=== PATIENT | female | born 1990 | race American Indian/Alaskan Native ===

== ENCOUNTER 2024-01-16 12:59 | Emergency (ER) | payer OTHER, SELFPAY ==
--- NOTE | ~2024-01-16 | CT_ITS ---
EXAMINATION: CT ABDOMEN AND PELVIS WITH CONTRAST CLINICAL INFORMATION: Umbilical drainage. COMPARISON: None. TECHNIQUE: Multidetector volumetric images were obtained from the superior aspect of the liver through the pubic symphysis following administration 85 mL of Omnipaque 350 intravenous contrast. Sagittal and coronal reformatted images were obtained on the technologist's workstation. Oral contrast: No This CT examination was performed using dose optimization techniques as appropriate, variously including the following: *Automated exposure control *Adjustment of mA and/or kV according to patient size (this includes techniques or standardized protocols for targeted exams where dose is matched to indication/reason for exam; i.e. extremities or head) *Use of iterative reconstruction technique DLP: 1094 mGy-cm FINDINGS: LUNG BASES: The visualized lung bases are unremarkable. LIVER, GALLBLADDER, AND BILIARY TREE: The liver is normal in size, shape and generally diminished in attenuation. No focal hepatic lesion or biliary ductal dilatation is present. The gallbladder is unremarkable with no evidence of radiopaque gallstones, gallbladder wall thickening, or obvious pericholecystic inflammatory changes. PANCREAS: Unremarkable. SPLEEN: Unremarkable. ADRENAL GLANDS: Unremarkable. KIDNEYS AND URETERS: The kidneys are normal in size, shape, and attenuation. No hydronephrosis, hydroureter, or calculi seen. No perinephric stranding. BLADDER: Unremarkable. GASTROINTESTINAL TRACT: The small and large bowel are unremarkable. The appendix is unremarkable. ABDOMINAL WALL: No significant hernia is appreciated. There is periumbilical fat stranding (7:58), without fluid collection or gas noted. LYMPH NODES: Normal. VASCULAR: Unremarkable. PELVIC VISCERA: No abdominal pelvic lymphadenopathy is seen. There are borderline enlarged bilateral inguinal lymph nodes, the largest on the right showing a short axis diameter of 9 mm, and on the left 1.0 cm (3:90, 96 and 93). OSSEOUS STRUCTURES: L5-S1, there is degenerative disc disease, with vacuum disc phenomena and a 4 mm retrolisthesis. No acute or aggressive osseous finding is noted. CT/CT abdomen pelvis w IV con IMPRESSION: 1. There is no significant hernia noted. There is periumbilical fat stranding, likely infectious or inflammatory in etiology. No fluid collection or gas is noted. 2. There is hepatic steatosis. 3. There are nonspecific borderline enlarged bilateral inguinal lymph nodes, likely reactive. Recommend management on a clinical basis. 4. There is moderately severe degenerative disc disease at L5-S1. Fleischner guidelines were followed. Electronically signed by: Damien Davis MD 01/16/2024 10:25 PM EDT RP
--- NOTE | 2024-01-16 13:56 | ED.ABDPAIN ---
HPI - Abdominal Pain General Chief Complaint: General Medical Stated Complaint: belly button bleeding Time Seen by Provider: 01/16/24 20:44 Source: patient Mode of arrival: ambulatory Limitations: no limitations History of Present Illness ED Provider: Alyssa Trinh PA-C HPI narrative: Patient is a 33 year old assigned female at with a history of Hidradenitis Suppurativa presenting to the emergency department today with bleeding from her umbilicus. Patient states that over the last month she has had intermittent bleeding from her belly button as well as other discharge. Patient states there is no possibility she accidentally scratched the inside of her belly button. Patient denies any dizziness, lightheadedness, nausea, vomiting, fever, chills, blurry vision, double vision, loss of vision, chest pain, difficulty breathing, shortness of breath, back pain, night sweats, pain with urination, increased urinary frequency, increased urinary urgency, blood in her urine or stool, syncope or a near syncopal episode, recent trauma or falls, bowel incontinence, bladder incontinence, or any other complaints at this time. MD elicited complaint: abdominal pain Exacerbating factors: nothing Relieving factors: nothing Associated symptoms: denies other symptoms Related Data Previous Rx's ?Medication ?Instructions ?Recorded cephalexin 500 mg capsule 500 mg PO Q6H 7 days #28 caps 01/16/24 doxycycline hyclate 100 mg tablet 100 mg PO BID 7 days #14 tabs 01/16/24 fluconazole 150 mg tablet 150 mg PO Q3D 2 doses #1 tab 01/16/24 Allergies Allergy/AdvReac Type Severity Reaction Status Date / Time amoxicillin Allergy Hives Verified 01/16/24 14:00 Review of Systems Constitutional: Reports no additional constitutional complaints, Denies chills, Denies fever(s) and Denies night sweats Eyes: Reports no additional eye complaints, Denies blurry vision, Denies change in vision, Denies diplopia, Denies eye discharge, Denies loss of vision and Denies eye pain Denies dizziness Cardiovascular: Reports no additional cardiovascular complaints, Denies chest pain, Denies lightheadedness, Denies Loss of Consciousness and Denies dyspnea Respiratory: Reports no additional respiratory complaints and Denies dyspnea Gastrointestinal: Reports no additional gastrointestinal complaints, Reports abdominal pain (around the umbilicus), Denies melena, Denies hematochezia, Denies change in bowel habits and Denies change in stool character Comments: umbilicus bleeding Genitourinary: Denies hematuria, Denies urinary frequency, Denies dysuria, Denies urinary incontinence, Denies urinary hesitancy and Denies urinary urgency Musculoskeletal: Reports no additional musculoskeletal complaints, Denies numbness and Denies tingling Denies dizziness, Denies loss of vision, Denies numbness and Denies tingling Psychiatric: Reports no additional psychiatric complaints Endocrine: Reports no additional endocrine complaints Hematologic/Lymphatic: Reports no additional hematologic/lymphatic complaints Allergic/Immunologic: Reports no additional allergic/immunologic complaints [facility] Past Medical History Attestation statement: The following information was validated with the patient. Source: old records reviewed and nursing notes reviewed Social History Social History Advance Directives: No Advance Directives Information Provided: No Physical Exam ED Vital Signs: Vital Signs - 24 hr 01/16/24 21:59 01/16/24 22:53 Temperature 98.5 F 98.5 F Pulse Rate 93 93 Respiratory Rate 20 20 Blood Pressure 109/63 109/63 Pulse Oximetry 98 98 Oxygen Delivery Method Room Air Room Air BMI result Body Mass Index 47.5 Const General: cooperative, no acute distress, alert and awake Nutritional Appearance: well nourished Orientation/consciousness: patient oriented x3 Limitations: no limitations HENMT Head: Yes normal to inspection and Yes atraumatic Ears: hearing grossly normal bilaterally and external ears normal General nose exam: Normal external nose present, no nasal discharge noted and no epistaxis Face and sinus: Yes normal facial exam, No abrasion and No laceration Mouth: Normal oral and palatal mucosa present, no drooling and no muffled voice Eyes General: appearance normal, both eyes and all related structures Periorbital: periorbital findings normal Eyelids: Yes eyelids normal Conjunctivae: conjunctivae normal Pupils: Equal, round and reactive pupils present EOM: EOMs intact bilaterally Neck Neck: Yes normal visual inspection, Yes full ROM and Yes no lymphadenopathy Chest Chest palpation & inspection: normal inspection of the chest Resp Effort & Inspection: normal respiratory effort and able to speak in complete sentences GI Inspection: Yes normal to inspection Palpation (GI): Soft to palpation, not firm, nontender, no guarding and not rigid Neuro General: patient oriented x3 and moves all extremities Cranial nerves: Yes Equal, round and reactive pupils present Cognition (Neuro): normal cognition Extrem General: Yes normal to inspection, Yes full ROM and Yes capillary refill normal Psych Appearance: grossly normal Mental Status: mental status grossly normal Affect: normal affect Attitude: cooperative Thought process: Normal thought process present Thought content: Normal thought content present Insight: Good insight present (Psych) Course Course Course Narrative: This is a Rapid Medical Exam performed in triage by Adelaida Llamas PA-C. Full HPI, ROS and PE to be performed by primary ED provider. 33yo F w/ pmhx pseudo-tumor cerebri, hidradenitis, fibroid removal laparoscopically, presenting to the ED c/o umbilical drainage/bleeding x 1 mos w/discomfort PE: + serosanguineous drainage noted from umbilicus. No surrounding erythema Plan: Labs, UA, CT AP Medical Decision Making Medical Decision Making [facility] Narrative: Patient is a 33 year old assigned female at with a history of Hidradentitis suppurativa presenting to the emergency department today with umbilical bleeding. Patient's physical exam was unremarkable. Patient's blood work showed a slight WBC count elevation of 12.5 but were otherwise unremarkable. Patient's urine showed a possible UTI. Patient's abdomen/pelvis CT showed periumbilical fat stranding - likely infectious or inflammatory in nature. I explained my physical exam findings as well as all test results to the patient. I answered all questions asked by the patient. I stressed the importance of the patient taking her medication as directed (either prescribed or as the over the counter packaging recommends). I stressed the importance of the patient following up with her primary care provider. I stressed the importance of the patient returning to the emergency department immediately if her symptoms were to worsen or if she were to develop any dizziness, shortness of breath, difficulty breathing, chest pain, blurry vision, loss of vision, nausea, vomiting, abdominal pain, fever, chills, back pain, or any other complaints. Patient verbalized agreement and understanding with this treatment plan and discharge. Differential Diagnosis Differential Diagnoses: The differential diagnosis associated with the presentation includes Umbilicus infection UTI Admission/Observation Consideration of admission/observation: Escalation of care including admission/observation considered Patient would have been admitted to the hospital had her work up had any findings where hospital admission was appropriate and her clinical presentation warranted hospital admission. Lab Data [facility] Lab Attestation statement: I reviewed the patient's lab results. My interpretation of these results are in the MDM Rationale portion of this note. 01/16/24 14:19 01/16/24 14:19 Labs: Lab Results 01/16/24 01/16/24 Range/Units 14:19 21:08 WBC 12.5 H (4.8-10.8) X10*3/uL RBC 5.34 (4.20-5.50) X10*6/uL Hgb 11.7 L (12.0-16.0) g/dl Hct 39.9 (37.0-47.0) % MCV 74.7 L (80.0-98.0) fL MCH 21.9 L (27.0-33.0) pg MCHC 29.3 L (31.0-35.0) g/dl RDW 17.4 H (11.0-16.0) % Plt Count 369 (160-400) X10*3/uL MPV 9.2 L (9.4-12.3) fL Immature Gran % (Auto) 0.5 H (0.0-0.4) % Neut % (Auto) 65.6 (45-73) % Lymph % (Auto) 24.0 (20-40) % Dane % (Auto) 5.2 (2-11) % Eos % (Auto) 3.7 (0-4) % Baso % (Auto) 1.0 (0-2) % Lymph # (Auto) 3.0 (1.2-4.9) X10*3/uL Dane # (Auto) 0.7 (0.1-1.2) X10*3/uL Eos # (Auto) 0.5 H (0.0-0.4) X10*3/uL Baso # (Auto) 0.1 (0.0-0.2) X10*3/uL Abs Immat Gran (auto) 0.06 H (0.00-0.03) X10*3/uL Absolute Neuts (auto) 8.2 (2.0-8.3) x10*3/uL Absolute Nucleated RBC 0.000 (0.0-0.012) X10*3/uL Nucleated RBC % (auto) 0.0 (0.0-0.2) /100WBC Smear Tech's Comments VERIFIED PT 12.9 (11.1-13.3) SEC INR 1.1 (0.9-1.1) Sodium 137 (135-145) mmol/L Potassium 3.9 (3.3-5.1) mmol/L Chloride 107 (96-108) mmol/L Carbon Dioxide 20 L (22-29) mmol/L Anion Gap 14 (12-20) BUN 7 L (9-16) mg/dL Creatinine 0.75 (0.5-1.4) mg/dL Estim Creat Clear Calc 144.8 Estimated GFR > 60 Random Glucose 203 H (60-115) mg/dL Calcium 9.4 (8.4-10.2) mg/dL Magnesium 1.9 (1.6-2.6) mg/dL Total Bilirubin 0.2 (0.0-1.0) mg/dL Direct Bilirubin < 0.2 (0.0-0.5) mg/dL AST 20 (5-31) U/L ALT 21 (0-31) U/L Alkaline Phosphatase 91 (39-117) U/L Total Protein 8.4 H (6.5-8.0) g/dL Albumin 3.6 (3.5-5.0) g/dL Lipase 24 (8-78) U/L Beta HCG, Quant < 2 mIU/mL Urine Color Yellow Urine Appearance Clear Urine pH 5.5 (5.0-9.0) Ur Specific Fleming >= 1.030 H (1.005-1.025) Urine Protein Trace (Neg-Trace) mg/dL Urine Glucose (UA) Negative (Negative) mg/dL Urine Ketones Negative (Negative) mg/dL Urine Blood Large (3+) H (Negative) Urine Nitrite Negative (Negative) Ur Leukocyte Esterase Trace H (Negative) Urine RBC 3-5 H (0-2) /HPF Urine WBC 0-5 (0-5) /HPF Ur Squamous Epith Cells 11-20 (0-2) /HPF Urine Bacteria 2+ (None Seen) Hyaline Casts 0-2 (0-2) /LPF Independent Interpretation I performed an independent interpretation of an: CT Scan Interpretation: My interpretation is in agreement with the radiologist's impression of this imaging study. EXAMINATION: CT ABDOMEN AND PELVIS WITH CONTRAST CLINICAL INFORMATION: Umbilical drainage. COMPARISON: None. TECHNIQUE: Multidetector volumetric images were obtained from the superior aspect of the liver through the pubic symphysis following administration 85 mL of Omnipaque 350 intravenous contrast. Sagittal and coronal reformatted images were obtained on the technologist's workstation. Oral contrast: No This CT examination was performed using dose optimization techniques as appropriate, variously including the following: *Automated exposure control *Adjustment of mA and/or kV according to patient size (this includes techniques or standardized protocols for targeted exams where dose is matched to indication/reason for exam; i.e. extremities or head) *Use of iterative reconstruction technique DLP: 1094 mGy-cm FINDINGS: LUNG BASES: The visualized lung bases are unremarkable. LIVER, GALLBLADDER, AND BILIARY TREE: The liver is normal in size, shape and generally diminished in attenuation. No focal hepatic lesion or biliary ductal dilatation is present. The gallbladder is unremarkable with no evidence of radiopaque gallstones, gallbladder wall thickening, or obvious pericholecystic inflammatory changes. PANCREAS: Unremarkable. SPLEEN: Unremarkable. ADRENAL GLANDS: Unremarkable. KIDNEYS AND URETERS: The kidneys are normal in size, shape, and attenuation. No hydronephrosis, hydroureter, or calculi seen. No perinephric stranding. BLADDER: Unremarkable. GASTROINTESTINAL TRACT: The small and large bowel are unremarkable. The appendix is unremarkable. ABDOMINAL WALL: No significant hernia is appreciated. There is periumbilical fat stranding (7:58), without fluid collection or gas noted. LYMPH NODES: Normal. VASCULAR: Unremarkable. PELVIC VISCERA: No abdominal pelvic lymphadenopathy is seen. There are borderline enlarged bilateral inguinal lymph nodes, the largest on the right showing a short axis diameter of 9 mm, and on the left 1.0 cm (3:90, 96 and 93). OSSEOUS STRUCTURES: L5-S1, there is degenerative disc disease, with vacuum disc phenomena and a 4 mm retrolisthesis. No acute or aggressive osseous finding is noted. CT/CT abdomen pelvis w IV con IMPRESSION: 1. There is no significant hernia noted. There is periumbilical fat stranding, likely infectious or inflammatory in etiology. No fluid collection or gas is noted. 2. There is hepatic steatosis. 3. There are nonspecific borderline enlarged bilateral inguinal lymph nodes, likely reactive. Recommend management on a clinical basis. 4. There is moderately severe degenerative disc disease at L5-S1. Fleischner guidelines were followed. Electronically signed by: Damien Davis MD 01/16/2024 10:25 PM EDT RP Dictated By: Damien Davis MD Signed By: Electronically signed by Damien Davis MD 01/16/24 [id number] Radiology Impression Discussion of test interpretation with radiology: I have reviewed the radiologist's reading. Prescription Management I considered prescription management with: Antibiotic (patient prescribed an antibiotic for her umbilicus infection) Medications Administered Discontinued Medications Generic Name Dose Route Start Last Admin Trade Name Freq PRN Reason Stop Dose Admin Cephalexin HCl 500 mg 01/16/24 22:37 01/16/24 22:50 Cephalexin 500 Mg Capsule PO 01/16/24 22:38 500 mg ONCE ONE Administration Doxycycline Monohydrate 100 mg 01/16/24 22:37 01/16/24 22:50 Doxycycline Monohydrate 100 Mg Capsule PO 01/16/24 22:38 100 mg ONCE ONE Administration Fluconazole 150 mg 01/16/24 22:37 01/16/24 22:50 Fluconazole 150 Mg Tablet PO 01/16/24 22:38 150 mg ONCE ONE Administration Iohexol 100 ml 01/16/24 20:17 01/16/24 20:17 Iohexol 350 Mg/Ml 100 Ml Infus..Btl IV 01/16/24 20:18 85 ml ONCE ONE Administration Discharge Plan Discharge Clinical Impression: UTI (urinary tract infection), Skin infection Patient Disposition: Home, Self-Care Instructions: Urinary Tract Infection in Women (DC), Cellulitis (DC) Additional Instructions: Follow up with your primary care provider and a pharmaceutical compounding supervisor to further examine your umbilicus. Return to the emergency department immediately if your symptoms worsen or if you develop any dizziness, shortness of breath, difficulty breathing, chest pain, blurry vision, loss of vision, nausea, vomiting, abdominal pain, fever, chills, back pain, or any other complaints. Prescriptions: New fluconazole 150 mg tablet 150 mg PO Q3D Qty: 1 0RF cephalexin 500 mg capsule 500 mg PO Q6H 7 Days Qty: 28 0RF doxycycline hyclate 100 mg tablet 100 mg PO BID 7 Days Qty: 14 0RF Referrals: [facility] [Provider Group] (Call to establish and follow up with a pharmaceutical compounding supervisor to better examine the skin within your umbilicus. ) [facility] Family Medicine [Provider Group] (Call to establish and follow up with a primary care provider. If you already have a primary care provider, please follow up with them.) [facility] [Provider Group] (Call to establish and follow up with a primary care provider. If you already have a primary care provider, please follow up with them.) [facility] Primary Care,[facility] [Provider Group] (Call to establish and follow up with a primary care provider. If you already have a primary care provider, please follow up with them.) Interventions: ED Discharge Assessment Last Done: 01/16/24 22:53 Discharge Date/Time: 01/16/24 22:53 Print Language: Danish
[2024-01-16 13:57] VITALS: BP 131/96; PULSE 116; RESP 18; TEMP 37.2; O2SAT 97; BMI 47.5
[2024-01-16 14:43] LABS: Hematocrit 39.9 % (37.0-47.0); Mean Corpuscular Volume 74.7 fL (80.0-98.0); PLT CLUMP 1; Red Blood Count 5.34 X10*6/uL (4.20-5.50); SCAN SMEAR FLAG 1
[2024-01-16 14:45] LABS: Basophils Absolute Auto 0.1 X10*3/uL (0.0-0.2); Eosinophils Absolute Auto 0.5 X10*3/uL (0.0-0.4); Eosinophils Percent Auto 3.7 % (0-4); Hemoglobin 11.7 g/dl (12.0-16.0); Imm Gran Abs Auto 0.06 X10*3/uL (0.00-0.03); Imm Gran Pct Auto 0.5 % (0.0-0.4); MANUAL DIFF FLAG SCAN; Mean Corpuscular HGB Conc 29.3 g/dl (31.0-35.0); Mean Corpuscular Hemoglobin 21.9 pg (27.0-33.0); Mean Platelet Volume 9.2 fL (9.4-12.3); Monocytes Absolute Auto 0.7 X10*3/uL (0.1-1.2); Monocytes Percent Auto 5.2 % (2-11); Neutrophils Absolute Auto 8.2 x10*3/uL (2.0-8.3); Neutrophils Percent Auto 65.6 % (45-73); Red Cell Distribution Width 17.4 % (11.0-16.0)
[2024-01-16 14:53] LABS: INTERNATIONAL NORM RATIO 1.1 (0.9-1.1); Prothrombin Time 12.9 SEC (11.1-13.3)
[2024-01-16 14:54] LABS: Alanine Aminotransferase 21 U/L (0-31); Albumin Level 3.6 g/dL (3.5-5.0); Alkaline Phosphatase 91 U/L (39-117); Anion Gap 14 (12-20); Aspartate Amino Transferase 20 U/L (5-31); Bilirubin Direct < 0.2 mg/dL (0.0-0.5); Bilirubin Total 0.2 mg/dL (0.0-1.0); Blood Urea Nitrogen 7 mg/dL (9-16); Calcium 9.4 mg/dL (8.4-10.2); Carbon Dioxide 20 mmol/L (22-29); Chloride 107 mmol/L (96-108); Creatinine Clr Calc Pharmacy 144.8; Estimated Glomerular Filt Rate > 60; Glucose Random 203 mg/dL (60-115); Lipase 24 U/L (8-78); Magnesium 1.9 mg/dL (1.6-2.6); Potassium 3.9 mmol/L (3.3-5.1); Sodium 137 mmol/L (135-145); Total Protein 8.4 g/dL (6.5-8.0)
[2024-01-16 14:57] LABS: HCG Quantitative < 2 mIU/mL
[2024-01-16 15:05] LABS: White Blood Count 12.5 X10*3/uL (4.8-10.8)
[2024-01-16 15:06] LABS: Platelet Count 369 X10*3/uL (160-400); SLIDE REVIEW VERIFIED
[2024-01-16] MEDS: iohexoL 350 MG/ML 100 ML INFUS..BTL IV (20:17)
[2024-01-16 21:14] LABS: Appearance Urine Clear; Color Urine Yellow; Glucose Urine UA Negative (Negative); Leukocyte Esterase Urine Trace (Negative); Nitrite Urine Negative (Negative); PH 5.5 (5.0-9.0); Specific Gravity - Urine >= 1.030 (1.005-1.025); UMIC TRIGGER UACC YES; Urine Blood Large (3+) (Negative); Urine Ketones Negative (Negative); Urine Protein Trace mg/dL (Neg-Trace)
[2024-01-16 21:35] LABS: Bacteria Urine 2+ (None Seen); Hyaline Casts Urine 0-2 /LPF (0-2); WBC Urine 0-5 /HPF (0-5)
[2024-01-16 21:59] VITALS: BP 109/63; PULSE 93; RESP 20; TEMP 36.9; O2SAT 98
[2024-01-16] MEDS: Doxycycline Monohydrate 100 MG CAPSULE PO (22:50)
[2024-01-16] MEDS: Fluconazole 150 MG TABLET PO (22:50)
[2024-01-16] MEDS: cephALEXin 500 MG CAPSULE PO (22:50)
[2024-01-16 22:53] VITALS: BP 109/63; PULSE 93; RESP 20; TEMP 36.9; O2SAT 98
== END 2024-01-16 22:53 | disposition home or self-care (01) ==
PROVIDERS: Physician Assistant; Emergency Provider Emergency Medicine Emergency Medical Services
DX: L03.316 Cellulitis of umbilicus (principal); N39.0 Urinary tract infection, site not specified; R10.9 Unspecified abdominal pain; Z79.899 Other long term (current) drug therapy
CPT/HCPCS: 10060; 36415; 74177; 80048; 80076; 81001; 83690; 83735; 84702; 85025; 85610; 87040; 99283; 99284; Q9967

== ENCOUNTER 2024-02-17 11:00 | Outpatient (AMB) | payer OTHER, SELFPAY ==
--- NOTE | 2024-02-17 11:07 | MHC.PC.OV ---
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: No Accompanied by: Self / Same As Patient Allergies amoxicillin Allergy (Verified 02/17/24 11:46) Hives Medication List - Last Reconciled 02/17/24 by Phill Conklin MD acetazolamide ER 500 mg PO BID ibuprofen 800 mg PO BID PRN quetiapine 400 mg PO BEDTIME Tobacco use date assessed: 02/17/24 Dental Screening Dental Screen Date: 02/17/24 Did you have a dental visit in the last 12 months?: Yes Did you have a dental problem in the last 6 months where you did not have access to dental care?: No Was dental information given to patient?: Patient has dentist HPI Establish Care HPI Details Patient comes in today to establish care - is a new patient to the [facility] States that she moved here from the [facility] last year States that she has a few health issues and needs to get some referrals to the appropriate specialists to help with these She has pseudotumor cerebri and recalls being advised that she needs to see an eye doctor about some findings in her eyes related to this but she has not been able to get in to see an eye doctor as a lot of the places that she has called up to get an appointment scheduled do not accept her health insurance and/or are not accepting new patients She also has not seen neurology for follow up of her pseudotumor cerebri in a while now Adds that she has uterine myomas and endometriosis and has not seen gynecology recently She is requesting for a referral to dermatology as well for her hidradenitis, which she's had for years She denies any headaches or dizziness Denies any chest pains, no SOB No nausea/vomiting, no abdominal pain No change in bowel habits noted [facility] Medical History (Updated 02/20/24 @ 07:16 by Phill Conklin MD) Smoker Morbid obesity with BMI of 45.0-49.9, adult Major depression, recurrent, chronic Hidradenitis suppurativa Uterine fibroid Fibromyalgia Lumbar degenerative disc disease Endometriosis Pseudotumor cerebri Surgical History (Updated 10/03/24 @ 11:52 by Phill Conklin MD) Status post robot-assisted surgical procedure Social History Housing: House Patient Tobacco Use Status: Current someday Tobacco user e-Cigarette/Vaping Use: Currently Using service: No Current occupational status: employed Current occupational exposures/hazards: No Cognitive needs: No Hearing needs: No Vision needs: No Questionnaire PHQ-9 Over the last 2 weeks, how often have you been bothered by any of the following problems? 1. Little interest or pleasure in doing things: several days 2. Feeling down, depressed, or hopeless: more than half the days 3. Trouble falling or staying asleep, or sleeping too much: nearly every day 4. Feeling tired or having little energy: nearly every day 5. Poor appetite or overeating: not at all 6. Feeling bad about yourself - or that you are a failure or have let yourself or your family down: not at all 7. Trouble concentrating on things, such as reading the newspaper or watching television: not at all 8. Moving or speaking so slowly that other people could have noticed. Or the opposite - being so fidgety or restless that you have been moving around a lot more than usual: not at all 9. Thoughts that you would be better off or of hurting yourself in some way: not at all Total score: 9 Depression Screening Interpretation: Positive Depression Screening Follow-up: Existing condition and In treatment Depression Screening Done: Yes [id number] - PHQ-9 Billing: Yes Source: Developed by Drs. Fredo Lopez, Kari Sen, Vipul Bar and colleagues, with an educational kwaku from [employer]. Thrive Questionnaire Date Thrive assessed: 02/17/24 I am a: Patient What is your living situation today?: I have a steady place to live Within the past 12 months, did the food you bought not last and you didn't have the money to get more?: Often true Within the past 12 months, did you worry whether your food would run out before you got money to buy more?: Never true Do you have trouble paying for medicines?: No Do you have trouble getting transportation to medical appointments?: No Do you have trouble paying your heating and electricity bill?: No Do you have trouble taking care of your child, family member or friend?: No Do you have trouble with day-to-day activities such as bathing, preparing meals, shopping, managing finances, etc.?: No Are you currently unemployed and looking for a job?: No Are you interested in more education?: No Please select the resources that you would like help with: None Currently or been in a relationship where the following occur: No concerns reported THRIVE Score: 1 AUDIT C Alcohol Use Questionnaire (AUDIT-C) 1. How often do you have a drink containing alcohol?: Never 3. How often do you have six or more drinks on one occasion?: Never Total Score: 0 Score Reviewed/Action Taken: Yes WILFREDO-7 AMB Questionnaire WILFREDO-7 Date WILFREDO - 7 assessed: 02/17/24 Feeling nervous, anxious, or on edge: 2 = More than half the days Not being able to stop or control worryin = More than half the days Worrying too much about different things: 2 = More than half the days Trouble relaxin = More than half the days Being so restless that it is hard to sit still: 1 = Several days Becoming easily annoyed or irritable: 2 = More than half the days Feeling afraid as if something awful might happen: 0 = Not at all Total WILFREDO-7 score (0-4 normal; 5-9 mild; 10-14 moderate; 15-21 severe): 11 Source: Developed by Drs. Fredo Lopez, Kari Sen, Vipul Bar and colleagues, with an educational kwaku from [employer]. Review of Systems Const Denies chills, Denies fatigue, Denies fever(s) and Denies headache(s) ENT Denies dysphagia, Denies dizziness, Denies otalgia, Denies headache(s), Denies neck pain, Denies odynophagia and Denies sore throat Card Denies chest pain, Denies palpitations and Denies dyspnea Resp Denies chest congestion, Denies cough and Denies dyspnea GI Denies abdominal pain, Denies constipation, Denies dysphagia, Denies heartburn, Denies diarrhea, Denies nausea, Denies odynophagia and Denies vomiting Denies difficulty voiding, Denies nocturia, Denies dysuria and Denies urinary urgency Musc Reports back pain (over the lower back) and Denies neck pain Skin/Breast Denies rash Neuro Denies dizziness and Denies headache(s) Endo Denies fatigue and Denies palpitations Physical exam (Primary Care) Vital Signs: Last Vital Signs Pulse 127 H 02/17/24 11:18 BP 104/82 02/17/24 11:18 Pulse Ox 95 02/17/24 11:18 Oxygen Delivery Method Room Air 02/17/24 11:18 BMI result Body Mass Index 48.1 Tobacco/Smoking Status: Tobacco use Status Tobacco use date assessed 02/17/24 02/17/24 11:22 Patient Tobacco Use Status Current someday Tobacco 02/17/24 11:26 e-Cigarette/Vaping Use Currently Using 02/17/24 11:26 PHQ-9: PHQ-9 Score PHQ-9: Total score 9 02/17/24 11:49 Depression Screening Interpretation: Positive Depression Screening Follow-up: Existing condition and In treatment Thrive Assessment: Date of Thrive Assessment Date Thrive assessed 02/17/24 02/17/24 11:22 Currently or been in a relationship where the following occur: No concerns reported Const General: no acute distress and alert HENMT Ears: TM's normal bilaterally and EAC's normal Throat: Yes posterior oropharynx normal and Yes tonsils normal (no TP congestion) Neck Neck: Yes no lymphadenopathy and Yes supple Resp Auscultation: clear to auscultation bilaterally, no rales and no wheezes Cardio Rate: regular rate Rhythm: regular rhythm Heart sounds: no murmurs GI Palpation (GI): Soft to palpation, nontender and No hepatosplenomegaly present Skin General skin exam: no rashes or lesions noted Extrem General: Yes no clubbing, cyanosis or edema Office Procedures Flu Questionnaire Does the patient have a severe egg allergy?: No Immunizations Fluarix Triv [id number] (PF) 45 mcg (15 mcg x 3)/0.5 mL IM syringe Performing Provider: Phill Conklin MD [facility] Documented (not given) by: LAZARUS Mclean on 02/17/24 11:28 Reason Not Given: Patient Refused Coding Level of Care Code New Pt Level 4 (99968) Diagnoses Pseudotumor cerebri G93.2 Uterine leiomyoma, unspecified location D25.9 Uterine leiomyoma location: unspecified location Hidradenitis suppurativa L73.2 Degeneration of intervertebral disc of lumbar region with discogenic back pain M51.360 Disc-related pain type: discogenic back pain only Major depression, recurrent, chronic F33.9 Smoker F17.200 Morbid obesity with BMI of 45.0-49.9, adult E66.01; Z68.42 Assessment & Plan Assessment & Plan (1) Pseudotumor cerebri: Code(s): G93.2 - Benign intracranial hypertension Category: Medical Plan: Will send patient for some labs REBECCA Will refer her to neurology for continuing management of her pseudotumor cerebri/benign intracranial hypertension Continue Diamox ER 500 mg BID (Rx refilled) Will also refer her to ophthalmology, per request, for further evaluation and management of her eye issues related to her neurologic condition , which is likely papilledema in the setting of pseudotumor cerebri (2) Uterine fibroid: Code(s): D25.9 - Leiomyoma of uterus, unspecified Category: Medical Qualifiers: Uterine leiomyoma location: unspecified location Qualified Code(s): D25.9 - Leiomyoma of uterus, unspecified Plan: Patient reports (+) Hx of uterine myomas and endometriosis Per request, will refer her to gynecology for further evaluation and management (3) Hidradenitis suppurativa: Code(s): L73.2 - Hidradenitis suppurativa Category: Medical Plan: Per request, will refer her to dermatology for continuing management of her hidradenitis - patient states that these tend to appear all over her body (4) Lumbar degenerative disc disease: Code(s): M51.369 - Other intervertebral disc degeneration, lumbar region without mention of lumbar back pain or lower extremity pain Category: Medical Qualifiers: Disc-related pain type: discogenic back pain only Qualified Code(s): M51.360 - Other intervertebral disc degeneration, lumbar region with discogenic back pain only Plan: Discussed activity and weight-lifting restrictions to avoid aggravating her low back pain Her abdominal CT done at the ER last month revealed incidentally (+) moderately severe degenerative disc disease at L5-S1 Patient takes Ibuprofen 800 mg BID PRN for pain (5) Major depression, recurrent, chronic: Code(s): F33.9 - Major depressive disorder, recurrent, unspecified Category: Medical Plan: Continue Quetiapine 400 mg Q HS Follow up with psychiatry as scheduled (6) Smoker: Code(s): F17.200 - Nicotine dependence, unspecified, uncomplicated Category: Social Hx Plan: Patient is counseled on smoking cessation (7) Morbid obesity with BMI of 45.0-49.9, adult: Code(s): E66.01 - Morbid (severe) obesity due to excess calories; Z68.42 - Body mass index [BMI] 45.0-49.9, adult Category: Medical Plan: Discussed diet/exercise as tolerated/lose weight Plan Follow up in 3 months Orders: Orders Comprehensive [place]. Panel Fast 02/17/24 E78.00 - Pure hypercholesterolemia, unspecified Vitamin D 25-OH Total 02/17/24 E55.9 - Vitamin D deficiency, unspecified Influenza [id number] Immunization 02/17/24 Z23 - Encounter for immunization Complete Blood Count Auto Diff 02/17/24 D64.9 - Anemia, unspecified Lipid Panel 02/17/24 E78.00 - Pure hypercholesterolemia, unspecified TSH reflex Free T4 02/17/24 E78.00 - Pure hypercholesterolemia, unspecified UA CC w/rflx Micro + Cult 02/17/24 R30.0 - Dysuria Hemoglobin A1c 02/17/24 E11.9 - Type 2 diabetes mellitus without complications IRON PROFILE 02/17/24 D50.9 - Iron deficiency anemia, unspecified Vitamin B12 and Folate 02/17/24 E53.8 - Deficiency of other specified B group vitamins Referrals CERTIFIED HEALTH EDUCATION SPECIALIST Referral D25.9 - Leiomyoma of uterus, unspecified, N80.9 - Endometriosis, unspecified, Z12.4 - Encounter for screening for malignant neoplasm of cervix Neurology Referral G93.2 - Benign intracranial hypertension Dermatology Referral L73.2 - Hidradenitis suppurativa Ophthalmology Referral G93.2 - Benign intracranial hypertension, H54.7 - Unspecified visual loss Medications: New acetazolamide ER 500 mg PO BID 30 days 60 caps 3RF G93.2 - Benign intracranial hypertension
[2024-02-17 11:18] VITALS: BP 104/82; PULSE 127; O2SAT 95; BMI 48.1
== END 2024-02-17 13:06 | disposition home or self-care (01) ==
PROVIDERS: PCP Internal Medicine; Visit Provider Internal Medicine
DX: G93.2 Benign intracranial hypertension (principal); F33.9 Major depressive disorder, recurrent, unspecified; E66.813 Obesity, class 3; Z68.42 Body mass index [BMI] 45.0-49.9, adult; D25.9 Leiomyoma of uterus, unspecified; L73.2 Hidradenitis suppurativa; M51.360 Other intervertebral disc degeneration, lumbar region with discogenic back pain only; F17.200 Nicotine dependence, unspecified, uncomplicated

== ENCOUNTER → 2024-02-17 11:00 | Outpatient (BNVA) | payer OTHER, SELFPAY | PROVIDERS: PCP Internal Medicine; Visit Provider Internal Medicine | DX: G93.2 Benign intracranial hypertension (principal); D25.9 Leiomyoma of uterus, unspecified; L73.2 Hidradenitis suppurativa; M51.360 Other intervertebral disc degeneration, lumbar region with discogenic back pain only; F33.9 Major depressive disorder, recurrent, unspecified; E66.01 Morbid (severe) obesity due to excess calories; Z68.42 Body mass index [BMI] 45.0-49.9, adult; F17.200 Nicotine dependence, unspecified, uncomplicated; Z71.6 Tobacco abuse counseling; Z71.3 Dietary counseling and surveillance | CPT/HCPCS: 90471; 96127; 99202 ==

== ENCOUNTER 2024-05-04 09:41 | Outpatient (AMB) | payer OTHER, SELFPAY ==
--- NOTE | 2024-05-04 09:54 | A.OFFPC_ITS ---
Vital Signs 05/04/24 09:55 Height 5 ft 5 in Weight 295 lb 4 oz BMI 49.1 BP 120/70 Blood Pressure Location Lt brachial Position Sitting Pulse 97 Pulse Source Pulse Oximeter Pulse Oximetry (%) 96 Oxygen Delivery Method Room Air Intake Visit Reasons: [facility] pain/dm/DC 04/29/24 Intake Note: Patient is here to follow-up after a visit the emergency department at [facility] on 04/27/24. Pt decline flu shot today. Alumni Coordinator Required: No Railroad Auditor: Present Accompanied by: Mother Allergies amoxicillin Allergy (Verified 05/04/24 09:55) Hives Tobacco use date assessed: 05/04/24 Dental Screening Dental Screen Date: 02/17/24 [facility] Medical History (Updated 05/04/24 @ 13:27 by Evan Nielsen MD) Diabetes mellitus Smoker Morbid obesity with BMI of 45.0-49.9, adult Major depression, recurrent, chronic Hidradenitis suppurativa Uterine fibroid Fibromyalgia Lumbar degenerative disc disease Endometriosis Pseudotumor cerebri Surgical History Status post robot-assisted surgical procedure Social History (Updated 05/04/24 @ 10:06 by LAZARUS Morrison) Housing: House Alcohol intake: never Patient Tobacco Use Status: Current everyday Tobacco user Tobacco use type: Cigarette Cigarette Packs Per Day: 0.5 Cigarettes Per Day: 7 e-Cigarette/Vaping Use: Former Use Second Hand Smoke Exposure: Yes service: No Current occupational status: employed Current occupational exposures/hazards: No Cognitive needs: No Hearing needs: No Vision needs: No Questionnaire Thrive Questionnaire Date Thrive assessed: 02/17/24 I am a: Patient What is your living situation today?: I have a steady place to live Within the past 12 months, did the food you bought not last and you didn't have the money to get more?: Often true Within the past 12 months, did you worry whether your food would run out before you got money to buy more?: Never true Do you have trouble paying for medicines?: No Do you have trouble getting transportation to medical appointments?: No Do you have trouble paying your heating and electricity bill?: No Do you have trouble taking care of your child, family member or friend?: No Do you have trouble with day-to-day activities such as bathing, preparing meals, shopping, managing finances, etc.?: No Are you currently unemployed and looking for a job?: No Are you interested in more education?: No Please select the resources that you would like help with: None Currently or been in a relationship where the following occur: No concerns reported THRIVE Score: 1 WILFREDO-7 AMB Questionnaire WILFREDO-7 Date WILFREDO - 7 assessed: 02/17/24 Source: Developed by Drs. Fredo Lopez, Kari Sen, Vipul Bar and colleagues, with an educational kwaku from [employer]. Physical exam (Primary Care) Vital Signs: Last Vital Signs Pulse 97 05/04/24 09:55 BP 120/70 05/04/24 09:55 Pulse Ox 96 05/04/24 09:55 Oxygen Delivery Method Room Air 05/04/24 09:55 BMI result Body Mass Index 49.1 Tobacco/Smoking Status: Tobacco use Status Tobacco use date assessed 05/04/24 05/04/24 10:08 Patient Tobacco Use Status Current everyday Tobacco 05/04/24 10:08 Tobacco use type Cigarette 05/04/24 10:08 e-Cigarette/Vaping Use Former Use 05/04/24 10:08 Thrive Assessment: Date of Thrive Assessment Date Thrive assessed 02/17/24 05/04/24 10:08 Currently or been in a relationship where the following occur: No concerns reported Coding Level of Care Code Est Pt Level 4 (83782) Complex EM visit Add On G2211 Diagnoses Diabetes mellitus E11.9 Pseudotumor cerebri G93.2 Major depression, recurrent, chronic F33.9 Assessment & Plan Assessment & Plan (1) Diabetes mellitus: Code(s): E11.9 - Type 2 diabetes mellitus without complications Category: Medical Plan: New onset diagnosis. Patient is seeing an Problem Manager the following Wednesday. The appt was made from [facility] ER. I suggested she see the provider who will decide her insulin regimen (basal bolus). Prescriptions started in the ER were refilled. CGM ordered. (2) Pseudotumor cerebri: Code(s): G93.2 - Benign intracranial hypertension Category: Medical Plan: Patient is on Diamox. Due to her new diagnosis of , the Diamox is discontinued. She was taking 1 g a day. No Neurology record in the chart. She believes the diagnosis was made in [place] but cannot recall the neurologist name. She did see somebody at [facility]. We will check records at [facility]. I will message her PCP regarding further options for this patient. (3) Major depression, recurrent, chronic: Code(s): F33.9 - Major depressive disorder, recurrent, unspecified Category: Medical Plan: Has a psychiatrist who has been prescribing Latuda (Dr Purvis). I encouraged her to discuss her with him and decide on medications during . Plan History of Present Illness The patient is a 34-year-old female presenting with a recent diagnosis of and severe diabetes mellitus. During an emergency room visit at [facility], her blood glucose level was noted to be 561 mg/dL, leading to a diagnosis of diabetes. She stayed in the hospital for four nights and was discharged with insulin and advised to cease her mental health medications. She has an upcoming endocrinology appointment. The patient is currently on a sliding scale insulin regimen, utilizes glargine 35 units at night, and reports limited supplies of insulin. The patient also has a history of pseudotumor cerebri since 1999, initially diagnosed by a specialist in [place]. She has a neurology appointment scheduled due to symptoms and previous prescriptions for Diamox. She mentions a history of Bipolar II disorder, for which she takes Trintellix. Social History - No specific details about employment, housing, or education were discussed. - The patient mentioned medication compliance and refills in her conversation. Review of Systems - General: Reports being severely diabetic. - Neurological: Did not mention specific symptoms beyond pseudotumor cerebri. Physical Exam General: Cooperative and healthy appearing Nutritional Appearance: Well nourished Orientation/consciousness: Patient oriented x3 Limitations: No limitations Head: Normal to inspection General: Appearance normal, both eyes and all related structures Neck: Normal visual inspection Chest: Normal palpation of entire chest wall Respiratory: Normal respiratory effort Neurology: Patient oriented x3 Results Plan - Refill insulin prescriptions to ensure adequate supplies until the upcoming endocrinology appointment. - Address the request for a pen or easier administration method for insulin. - Discussed potential follow-up for blood glucose monitoring devices. - Reinforce the importance of continued Diamox for pseudotumor cerebri. - Confirmed upcoming neurology appointment for further evaluation of pseudotumor cerebri. - Bipolar disorder management continues with current medication. Patient was informed and verbally consented to the use of an ambient scribe for clinic note documentation during this visit. Discussion Notes I discussed with the patient the importance of managing her diabetes closely during and the potential complications that may arise. We reviewed her insulin regimen and confirmed that additional insulin supplies were necessary. I explained the timeline for obtaining a continuous glucose monitoring device and underscored the importance of adhering to her current regimen until the device is available. We also reviewed her longstanding history of pseudotumor cerebri and the need to follow through with her neurology appointment. Continuing her current treatment for Bipolar II disorder was advised, and she expressed understanding of the management plan. We also discussed care considerations. Patient Instructions - Continue current insulin regimen as prescribed until your endocrinology appointment. - Monitor blood sugar levels regularly and bring records to your appointment. - Be prepared for a possible delay in receiving the glucose monitoring device. Stop Diamox. Will discuss with Primary Care for other options. - Keep your scheduled neurology appointment for further evaluation. - Stay on current medication for Bipolar II disorder and report any concerns to your psychiatrist. - Attend visits regularly and notify healthcare providers of any changes or concerns. Medications: New insulin glargine 25 units (0.25 mL) subcut BEDTIME 15 mL 0RF insulin aspart U-100 1 sliding scale dose subcut TID 10 mL 0RF
[2024-05-04 09:55] VITALS: BP 120/70; PULSE 97; O2SAT 96; BMI 49.1
== END 2024-05-04 11:14 | disposition home or self-care (01) ==
PROVIDERS: PCP Internal Medicine; Visit Provider Internal Medicine
DX: E11.9 Type 2 diabetes mellitus without complications (principal); G93.2 Benign intracranial hypertension; F33.9 Major depressive disorder, recurrent, unspecified

== ENCOUNTER → 2024-05-04 09:41 | Outpatient (BNVA) | payer OTHER, SELFPAY | PROVIDERS: PCP Internal Medicine; Visit Provider Internal Medicine | DX: E11.9 Type 2 diabetes mellitus without complications (principal); G93.2 Benign intracranial hypertension; F33.9 Major depressive disorder, recurrent, unspecified | CPT/HCPCS: 99212 ==